=== PATIENT | female | born 1950 | race Caucasian/White ===

== ENCOUNTER → 2017-01-24 | Outpatient (CLI) | payer MEDICARE, BC ==
--- NOTE | 2017-01-24 13:23 | RADIOLOGY REPORT PS360 ---
ANKLE-LT-3 VIEWS HISTORY: ACUTE LT ANKLE PAIN ORDERING PHYSICIAN: Juan C Hayes MD PATIENT AGE: 66 years COMPARISON: None FINDINGS: No lytic or blastic change. There is normal mineralization.. The joint spaces are well-preserved. No significant degenerative/arthritic changes. No erosive changes evident. Well-circumscribed calcific densities are present at the tip of the medial malleolus . These may be related to accessory centers of ossification or old injury. Cannot exclude the possibility of a avulsion fracture at this region of at least one small calcific density please correlate with patient's area of pain and tenderness. No other abnormality is evident. IMPRESSION: At least 3 small calcific densities at the tip of the medial malleolus which may be related to accessory centers of ossification. Avulsion fracture however cannot be excluded of 2 of the left well-defined calcifications
== END ==
LOC: RAD 12:54
DX: M25.572 Pain in left ankle and joints of left foot (principal)

== ENCOUNTER → 2017-02-08 | Outpatient (CLI) | payer MEDICARE ==
[~2017-02-08] MED LIST: ACTONEL35 MG PO; LISINOPRIL40 MG PO; METOPROLOL25 MG PO; PRAVASTATIN 40M40 MG PO; RANITIDINE HCL150 MG OR
--- NOTE | 2017-02-10 15:10 | RADIOLOGY REPORT PS360 ---
History and Indications: Hypertension, hyperlipidemia, family history, chest pain, shortness of breath, syncope and fatigue. Procedure: Patient exercised on All protocol 6 minutes and 30 seconds, resting heart rate was 70 beats per resting blood pressure 188/101, with exercise maximum heart rate achieved was 1 43 bpm which is equal to 90% of the maximum predicted heart rate and a blood pressure was 224/100. Test was started due to shortness of breath patient denied any complained of chest pain. Patient has adequate exercise capacity achieved 7mets of workload on treadmill, the blood pressure response to exercise was hypertensive. Electrocardiogram: Resting electrocardiogram showed sinus rhythm nonspecific ST-T changes, with exercise there is less than 1.[address] segment depression noted from the baseline EKG. The EKG portion of the exercise Myoview is nondiagnostic secondary to baseline abnormal EKG. Cardiac stress and resting SPECT images: Cardiac stress and rest SPECT images were obtained technetium 99 Myoview 11.0 mCi at rest and 31.0 mCi at stress, gated SPECT further analysis of segmental wall motion and calculation of the ejection fraction also done. Cardiac stress and rest images show a mild fixed defect in the anterior wall with normal contractility in the gated SPECT is likely secondary to soft tissue attenuation from the breast, no reversible ischemia seen. Computer derived ejection fraction is over 65% with no obvious regional wall motion abnormality, right ventricle is mildly enlarged with normal contractility. Conclusion: 1. The EKG portion of the exercise Myoview is nondiagnostic secondary to baseline abnormal EKG. Patient has adequate exercise capacity achieved 7mets of workload on treadmill, the blood pressure response to exercise was hypertensive. Test was started due to shortness of breath patient denied complained of chest pain. 2. No obvious scintigraphic evidence of reversible ischemia seen. Computer derived ejection fraction is over 65% with no obvious regional wall motion abnormality, right ventricle is mildly enlarged with normal contractility.
== END ==
LOC: RAD 10:27
DX: R10.13 Epigastric pain (principal); M54.6 Pain in thoracic spine; R06.02 Shortness of breath
CPT/HCPCS: A9502